=== PATIENT | male | born 1980 ===

== ENCOUNTER 2016-07-31 02:26 | Inpatient (IN) | payer MEDICAID ==
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
[2016-07-31 05:51] LABS: BASO % 0.6 % (0.0-2.0); EOS % 0.6 % (0.0-4.0); HEMATOCRIT 51.2 % (35.0-51.0); LYMPH # 0.9 K/uL (1.0-4.3); LYMPH % 11.7 % (20.0-40.0); MEAN CELL VOLUME 93.1 fl (80.0-94.0); MEAN CORPUSCULAR HEMOGLOBIN 31.3 pg (27.0-31.0); MEAN CORPUSCULAR HGB CONC 33.6 g/dL (33.0-37.0); MEAN PLATELET VOLUME 8.9 fl (7.2-11.7); MONO # 0.7 K/uL (0.0-0.8); NEUT # 6.2 K/uL (1.8-7.0); NEUT % 78.1 % (50.0-75.0); NRBC % 0.1 % (0.0-0.0); RED CELL DISTRIBUTION WIDTH 14.1 % (11.5-14.5); WHITE BLOOD COUNT 7.9 K/uL (4.8-10.8)
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
[2016-07-31] MEDS ORDERED: Multivitamin (MVI) 10 ML, Thiamine 100 MG, Folic Acid 1 MG in Sodium Chloride 0.9% 1,00... IV ONE (06:02)
[2016-07-31 06:08] LABS: ALB/GLOB RATIO 1.4 (1.0-2.1); ALKALINE PHOSPHATASE 52 U/L (38-126); ALT/SGPT 58 U/L (21-72); AST/SGOT 51 U/L (17-59); BILIRUBIN,TOTAL 1.6 mg/dl (0.2-1.3); BLOOD UREA NITROGEN 7 mg/dl (9-20); CALCIUM 9.6 mg/dL (8.4-10.2); CARBON DIOXIDE 19 mmol/L (22-30); CHLORIDE 108 mmol/L (98-107); GFR AFRICAN-AMERICAN > 60; GLUCOSE,RANDOM 101 mg/dL (75-110); POTASSIUM 4.7 MMOL/L (3.6-5.0); SODIUM 144 mmol/l (132-148); TOTAL PROTEIN 8.2 G/DL (6.3-8.2)
[2016-07-31 07:01] LABS: PARTIAL THROMBOPLASTIN TIME 26.8 SECONDS (23.3-32.5)
[2016-07-31] MEDS ORDERED: Pneumococcal 23-Valent Vaccine IM ONE (07:49)
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
--- NOTE | 2016-07-31 08:12 | RAD ---
HISTORY: medical exam COMPARISON: No prior. FINDINGS: LUNGS: No focal infiltrate. PLEURA: No significant pleural effusion identified, no pneumothorax apparent. CARDIOVASCULAR: Heart is top normal in size. This however may be related to projection. OSSEOUS STRUCTURES: No significant abnormalities. VISUALIZED UPPER ABDOMEN: Normal. OTHER FINDINGS: None. IMPRESSION: No active disease.
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
--- NOTE | 2016-07-31 09:29 | CARD ---
APPROVED REPORT EKG Measurement Heart [id number] CO [id number] <Conclusion> Normal sinus rhythm with sinus arrhythmia Normal ECG
--- NOTE | 2016-07-31 09:37 | CP.PCM.PN ---
Subjective - Date & Time of Evaluation Date of Evaluation: 07/31/16 Time of Evaluation: 09:36 - Subjective Subjective: newCTreviewed Contusion in left temperal lobe little bigger suggest obs in ICU today and repeat CT in AM Objective - Vital Signs/Intake and Output Vital Signs (last 24 hours): Temp Pulse Resp BP Pulse Ox 98.6 F 67 16 114/71 99 07/31/16 07:00 07/31/16 08:00 07/31/16 08:00 07/31/16 08:00 07/31/16 08:00 Intake and Output: 07/31/16 07/31/16 06:59 18:59 Intake Total 0 Output Total 400 Balance -400 - Medications Medications: Current Medications Multivitamins/Vitamin C 10 ml/Thiamine HCl 100 mg/ Folic Acid 1 mg/ Sodium Chloride 1,011.2 mls @ 75 mls/hr IV .[id number] ONE Stop: 07/31/16 19:30 Last Admin: 07/31/16 09:23 Dose: 75 mls/hr Ondansetron HCl (Zofran Inj) 4 mg IVP Q6H PRN PRN Reason: Nausea/Vomiting - Labs Labs: 07/31/16 05:46 07/31/16 05:46 PT 10.5 SECONDS (9.6-11.2) 07/31/16 06:05 INR 1.01 (0.92-1.08) 07/31/16 06:05 APTT 26.8 SECONDS (23.3-32.5) 07/31/16 06:05
--- NOTE | 2016-07-31 09:54 | CT ---
PROCEDURE: CT HEAD WITHOUT CONTRAST. HISTORY: f/u SDH COMPARISON: Earlier same day at 3:43 TECHNIQUE: Axial computed tomography images were obtained through the head/brain without intravenous contrast. Radiation dose: Total exam DLP = 842 mGy-cm. This CT exam was performed using one or more of the following dose reduction techniques: Automated exposure control, adjustment of the mA and/or kV according to patient size, and/or use of iterative reconstruction technique. FINDINGS: HEMORRHAGE: There is once again evidence of multiple areas of parenchymal and subdural hemorrhage. There is interval increase and left temporal lobe parenchymal hematoma seen best on series 4, images 14 through 20. Area now measures 2.3 centimeters by 1.6 centimeters. There is a small amount of additional subtle adjacent subdural blood and also some smaller areas of posterior left temporal hemorrhagic contusion seen on series 4, image 13 through 17. There is a minimal amount of additional subdural blood seen on image 27 in the left frontotemporal region. There is a small subtle area of parenchymal hemorrhagic contusion seen posteriorly in the right parietal convexity on axial image 44 and 45. Minimal probable stable thin subdural hematoma is seen overlying the right temporal lobe region on axial image 12-14. Minimal out of asymmetric increased density seen along the left tentorium which may suggest some additional subdural blood. This is unchanged. BRAIN: Mild localized mass effect is caused by the left temporal lobe hematoma. No significant midline shift is noted. No new infarct is noted. VENTRICLES: No intraventricular hemorrhage. Ventricles are stable in size. CALVARIUM: On bone windows I could not entirely exclude a small nondisplaced fracture of the right temporal bone region although this may reflect anatomic variation and/or suture. This extends into the inferior right temporal bone region. No displaced fractures are noted. No definite epidural hematomas are seen. PARANASAL SINUSES: Mild mucosal changes are seen in the sinuses. MASTOID AIR CELLS: Unremarkable as visualized. No inflammatory changes. OTHER FINDINGS: None. IMPRESSION: Multiple areas of parenchymal hemorrhage and subdural blood are noted as described above. This is increased in the left temporal lobe region with some mild localized mass effect now identified. Please see above for details. No hydrocephalus. Dr. Bass was notified of the findings at the time of this dictation.
[2016-07-31 11:32] LABS: RBC URINE 1 /hpf (0-3); URINE BILIRUBIN NEGATIVE (NEGATIVE); URINE BLOOD NEGATIVE (NEGATIVE); URINE COLOR STRAW (YELLOW); URINE GLUCOSE (UA) NEG (Normal); URINE KETONE NEGATIVE (NEGATIVE); URINE LEUKOCYTE ESTERASE NEG Leu/uL (Negative); URINE PROTEIN NEGATIVE (NEGATIVE); URINE UROBILINOGEN 0.2-1.0 mg/dL (0.2-1.0); WBC URINE < 1 /hpf (0-5)
[2016-08-01 05:16] LABS: BASO % 0.6 % (0.0-2.0); EOS # 0.1 K/uL (0.0-0.7); EOS % 1.7 % (0.0-4.0); HEMATOCRIT 49.8 % (35.0-51.0); LYMPH % 13.8 % (20.0-40.0); MEAN CELL VOLUME 92.5 fl (80.0-94.0); MEAN CORPUSCULAR HGB CONC 34.6 g/dL (33.0-37.0); MEAN PLATELET VOLUME 9.3 fl (7.2-11.7); MONO % 13.1 % (0.0-10.0); NEUT # 5.2 K/uL (1.8-7.0); NEUT % 70.8 % (50.0-75.0); NRBC % 0.2 % (0.0-0.0); RED CELL DISTRIBUTION WIDTH 13.8 % (11.5-14.5); WHITE BLOOD COUNT 7.3 K/uL (4.8-10.8)
[2016-08-01 05:26] LABS: ALCOHOL SERUM < 10 mg/dl (0-10); BLOOD UREA NITROGEN 14 mg/dl (9-20); CALCIUM 9.6 mg/dL (8.4-10.2); CARBON DIOXIDE 24 mmol/L (22-30); CHLORIDE 104 mmol/L (98-107); GFR AFRICAN-AMERICAN > 60; GLUCOSE,RANDOM 97 mg/dL (75-110); POTASSIUM 4.2 MMOL/L (3.6-5.0); SODIUM 138 mmol/l (132-148)
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
--- NOTE | 2016-08-01 10:07 | CT ---
PROCEDURE: CT HEAD WITHOUT CONTRAST. HISTORY: SDH COMPARISON: Yesterday TECHNIQUE: Axial computed tomography images were obtained through the head/brain without intravenous contrast. Radiation dose: Total exam DLP = 845 mGy-cm. This CT exam was performed using one or more of the following dose reduction techniques: Automated exposure control, adjustment of the mA and/or kV according to patient size, and/or use of iterative reconstruction technique. FINDINGS: HEMORRHAGE: There is once again evidence of multiple parenchymal hemorrhages in the left temporal lobe region. Larger anterior area of focal parenchymal hemorrhage and hemorrhagic contusion is grossly unchanged in size given for differences in slice selection. There is however some mild interval increase in posterior left temporal hemorrhagic contusion just anterior to the left mastoid air cell region on axial image 14 and 15 series 4. Largest area measures 10 millimeters x 11 millimeters previously 8 millimeters x 7 millimeters. No appreciable adjacent fractures are identified this region. There appears to be no interval change in right lateral temporal lobe subdural collection when compared to the prior study. No other new subdural collections are identified. There is stable appearance of a tiny right posterior frontal parenchymal hemorrhage on axial image 46. Parafalcine region and tentorial regions are grossly unchanged. No new cortical effacement is noted. No hydrocephalus or midline shift is noted. BRAIN: See above No atrophy or chronic microvascular ischemic changes. VENTRICLES: Unremarkable. No hydrocephalus. CALVARIUM: Unremarkable. PARANASAL SINUSES: Unchanged MASTOID AIR CELLS: Unremarkable as visualized. No inflammatory changes. OTHER FINDINGS: None. IMPRESSION: Mild interval increase left posterior temporal lobe hemorrhagic contusion. Larger area seen anteriorly on the prior study is grossly unchanged. This was placed into a critical result bin.
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
--- NOTE | 2016-08-01 11:46 | CP.PCM.PN ---
Subjective - Date & Time of Evaluation Date of Evaluation: 08/01/16 Time of Evaluation: 11:46 - Subjective Subjective: slight increase in size of contusion no interval change in condition no surgical intervention indicated repeat ct in AM keep in ICU Objective - Vital Signs/Intake and Output Vital Signs (last 24 hours): Temp Pulse Resp BP Pulse Ox 97.7 F 60 17 124/78 99 08/01/16 08:00 08/01/16 08:00 08/01/16 08:00 08/01/16 08:00 08/01/16 08:00 Intake and Output: 08/01/16 08/01/16 06:59 18:59 Intake Total 100 Output Total 200 Balance -100 - Medications Medications: Current Medications Acetaminophen (Tylenol 325mg Tab) 650 mg PO Q6 PRN PRN Reason: Headache Last Admin: 07/31/16 16:33 Dose: 650 mg Folic Acid (Folic Acid) 1 mg PO DAILY NATALIYA Loratadine (Claritin) 10 mg PO DAILY NATALIYA Last Admin: 08/01/16 08:49 Dose: 10 mg Multivitamins/Vitamin C (Multi-Delyn Liquid) 5 ml PO DAILY [facility] Ondansetron HCl (Zofran Inj) 4 mg IVP Q6H PRN PRN Reason: Nausea/Vomiting Thiamine HCl (Vitamin B1 Tab) 100 mg PO DAILY NATALIYA - Labs Labs: 08/01/16 04:30 08/01/16 04:30 PT 10.5 SECONDS (9.6-11.2) 07/31/16 06:05 INR 1.01 (0.92-1.08) 07/31/16 06:05 APTT 26.8 SECONDS (23.3-32.5) 07/31/16 06:05
[2016-08-01] MEDS: Multiple Vitamins Oral Solution PO SCH (13:10)
[2016-08-02 05:04] LABS: BLOOD UREA NITROGEN 9 mg/dl (9-20); CALCIUM 9.8 mg/dL (8.4-10.2); CARBON DIOXIDE 27 mmol/L (22-30); CHLORIDE 103 mmol/L (98-107); GFR AFRICAN-AMERICAN > 60; GLUCOSE,RANDOM 104 mg/dL (75-110); POTASSIUM 4.5 MMOL/L (3.6-5.0); SODIUM 137 mmol/l (132-148)
[2016-08-02 05:09] LABS: HEMATOCRIT 50.1 % (35.0-51.0); MEAN CELL VOLUME 91.9 fl (80.0-94.0); MEAN CORPUSCULAR HEMOGLOBIN 31.7 pg (27.0-31.0); MEAN CORPUSCULAR HGB CONC 34.4 g/dL (33.0-37.0); RED CELL DISTRIBUTION WIDTH 13.4 % (11.5-14.5); WHITE BLOOD COUNT 5.6 K/uL (4.8-10.8)
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
[2016-08-02 08:27] VITALS: PULSE 63
[2016-08-02] MEDS: Multiple Vitamins Oral Solution PO SCH (09:37)
--- NOTE | 2016-08-02 09:52 | CT ---
PROCEDURE: CT HEAD WITHOUT CONTRAST. HISTORY: [facility] COMPARISON: Comparison made with prior CT scan of the brain dated 08/01/2016. TECHNIQUE: Axial computed tomography images were obtained through the head/brain without intravenous contrast. Radiation dose: Total exam DLP = 838.90 mGy-cm. This CT exam was performed using one or more of the following dose reduction techniques: Automated exposure control, adjustment of the mA and/or kV according to patient size, and/or use of iterative reconstruction technique. FINDINGS: HEMORRHAGE: Current study re- demonstrates hemorrhagic contusional changes in the inferior and mid aspect of the left temporal lobe. Now visible is a low-attenuation rim of edema and or necrotic brain tissue which surrounds the hemorrhagic components. There also appears to be some very small amount of hemorrhagic contusion and or cortical surface/subarachnoid hemorrhage left inferior frontal operculuar region. No new hemorrhages. BRAIN: No mass effect or edema. No atrophy or chronic microvascular ischemic changes. VENTRICLES: No evidence of obstructive type hydrocephalus CALVARIUM: Unremarkable. PARANASAL SINUSES: Unremarkable as visualized. No significant inflammatory changes. MASTOID AIR CELLS: Unremarkable as visualized. No inflammatory changes. OTHER FINDINGS: None. IMPRESSION: Current study re- demonstrates hemorrhagic contusional changes in the inferior and mid aspect of the left temporal lobe. Now visible is a low-attenuation rim of edema and or necrotic brain tissue which surrounds the hemorrhagic components. There also appears to be some very small amount of hemorrhagic contusion and or cortical surface/subarachnoid hemorrhage left inferior frontal operculuar region. No new hemorrhages.
--- NOTE | 2016-08-02 10:35 | CP.PCM.PN ---
Subjective - Date & Time of Evaluation Date of Evaluation: 08/02/16 Time of Evaluation: 10:33 - Subjective Subjective: reviwed CT unchanged stable neurologically no indication for surgery clear for d/c Objective - Vital Signs/Intake and Output Vital Signs (last 24 hours): Temp Pulse Resp BP Pulse Ox 98.1 F 63 12 124/84 97 08/02/16 08:00 08/02/16 08:00 08/02/16 08:00 08/02/16 08:00 08/02/16 08:00 - Medications Medications: Current Medications Acetaminophen (Tylenol 325mg Tab) 650 mg PO Q6 PRN PRN Reason: Headache Last Admin: 08/01/16 20:08 Dose: 650 mg Folic Acid (Folic Acid) 1 mg PO DAILY [facility] Last Admin: 08/02/16 09:36 Dose: 1 mg Loratadine (Claritin) 10 mg PO DAILY [facility] Last Admin: 08/02/16 09:36 Dose: 10 mg Multivitamins/Vitamin C (Multi-Delyn Liquid) 5 ml PO DAILY [facility] Last Admin: 08/02/16 09:37 Dose: 5 ml Ondansetron HCl (Zofran Inj) 4 mg IVP Q6H PRN PRN Reason: Nausea/Vomiting Thiamine HCl (Vitamin B1 Tab) 100 mg PO DAILY [facility] Last Admin: 08/02/16 09:36 Dose: 100 mg - Labs Labs: 08/02/16 04:20 08/02/16 04:20 PT 10.5 SECONDS (9.6-11.2) 07/31/16 06:05 INR 1.01 (0.92-1.08) 07/31/16 06:05 APTT 26.8 SECONDS (23.3-32.5) 07/31/16 06:05
--- NOTE | 2016-08-02 10:48 | CP.CCUPN ---
CCU Subjective - Physician Review Subjective (Free Text): 08/02/16 10:48 Patient seen and examined, Awake and oriented x3, Comfortable, NAD Denies any new focal weakness or deficits. Afebrile Repeat Head CT scan reviewed with the neurosurgeon and patient was cleared for discharge CCU Objective - Vital Signs / Intake & Output Vital Signs (Last 4 hours): Vital Signs Temp Pulse Resp BP Pulse Ox 08/02/16 08:00 98.1 F 63 12 124/84 97 Intake and Output (Last 8hrs): Intake & Output 08/01/16 08/02/16 08/02/16 22:59 06:59 14:59 Output Total 300 Balance -300 Output: Urine 300 Urine, Voided 300 - Physical Exam Head: Positive for: Atraumatic, Normocephalic Pupils: Positive for: PERRL. Negative for: Sluggish, Non-Reactive Extroacular Muscles: Positive for: EOMI Conjunctiva: Positive for: Normal Ears: Positive for: Normal Mouth: Positive for: Moist Mucous Membranes Neck: Positive for: Normal Range of Motion, Trachea Midline. Negative for: Meningeal Signs, MIDLINE TENDERNESS, Paraspinal Tenderness, JVD, Lymphadenopathy , Bruit, Other Respiratory/Chest: Positive for: Clear to Auscultation, Good Air Exchange. Negative for: Respiratory Distress, Accessory Muscle Use Cardiovascular: Positive for: Regular Rate and Rhythm, Normal S1, S2, Peripheal Pulses Present. Negative for: Murmurs, Irregular Rhythm Abdomen: Positive for: Normal Bowel Sounds. Negative for: Tenderness, Distention, Peritoneal Signs Upper Extremity: Positive for: Normal Inspection. Negative for: Cyanosis, Edema Lower Extremity: Positive for: Normal Inspection. Negative for: Edema, CALF TENDERNESS Neurological: Positive for: GCS=15, CN II-XII Intact, Speech Normal, Motor Func Grossly Intact, Normal Sensory Function Psychiatric: Positive for: Alert, Oriented x 3, Normal Insight, Normal Concentration, Normal Affect, Normal Mood - Medications Active Medications: Active Medications Generic Name Dose Route Start Last Admin Trade Name Freq PRN Reason Stop Dose Admin Acetaminophen 650 mg 07/31/16 16:24 08/01/16 20:08 Tylenol 325mg Tab PO 650 mg Q6 PRN Administration Headache Folic Acid 1 mg 08/01/16 11:15 08/02/16 09:36 Folic Acid PO 1 mg DAILY [facility] Administration Loratadine 10 mg 07/31/16 14:15 08/02/16 09:36 Claritin PO 10 mg DAILY [facility] Administration Multivitamins/Vitamin C 5 ml 08/01/16 11:15 08/02/16 09:37 Multi-Delyn Liquid PO 5 ml DAILY [facility] Administration Ondansetron HCl 4 mg 07/31/16 05:42 Zofran Inj IVP Q6H PRN Nausea/Vomiting Thiamine HCl 100 mg 08/01/16 11:15 08/02/16 09:36 Vitamin B1 Tab PO 100 mg DAILY [facility]AL[facility] Administration - Patient Studies Lab Studies: Microbiology Studies 07/31/16 14:00 MRSA Culture (Admit) - Final Naris MRSA NOT DETECTED Lab Studies 08/02/16 08/02/16 Range/Units 04:20 04:20 WBC 5.6 (4.8-10.8) K/uL RBC 5.46 (4.40-5.90) Mil/uL Hgb 17.3 (12.0-18.0) g/dL Hct 50.1 (35.0-51.0) % MCV 91.9 (80.0-94.0) fl MCH 31.7 H (27.0-31.0) pg MCHC 34.4 (33.0-37.0) g/dL RDW 13.4 (11.5-14.5) % Plt Count 152 (130-400) K/uL Sodium 137 (132-148) mmol/l Potassium 4.5 (3.6-5.0) MMOL/L Chloride 103 (98-107) mmol/L Carbon Dioxide 27 (22-30) mmol/L Anion Gap 12 (10-20) BUN 9 (9-20) mg/dl Creatinine 0.7 L (0.8-1.5) mg/dL Est GFR ( Amer) > 60 Est GFR (Non-Af Amer) > 60 Random Glucose 104 (75-110) mg/dL Calcium 9.8 (8.4-10.2) mg/dL Laboratory Results - last 24 hr 08/02/16 08/02/16 04:20 04:20 WBC 5.6 RBC 5.46 Hgb 17.3 Hct 50.1 MCV 91.9 MCH 31.7 H MCHC 34.4 RDW 13.4 Plt Count 152 Sodium 137 Potassium 4.5 Chloride 103 Carbon Dioxide 27 Anion Gap 12 BUN 9 Creatinine 0.7 L Est GFR ( Amer) > 60 Est GFR (Non-Af Amer) > 60 Random Glucose 104 Calcium 9.8 Fingerstick Blood Sugar Results: 107 Review of Systems - Cardiovascular Cardiovascular: absent: As Per HPI, Acrocyanosis, Chest Pain, Chest Pain at Rest , Chest Pain with Activity, Claudication, Diaphoresis, Dyspnea, Dyspnea on Exertion, Edema, Irregular Heart Rhythm, Pain Radiating to Arm/Neck/Jaw, Leg Edema, Leg Ulcers, Lightheadedness, Orthopnea, Palpitations, Paroxysmal Nocturnal Dyspnea, Pedal Edema, Radiating Pain, Rapid Heart Rate, Slow Heart Rate, Syncope, Other, UNREMARKABLE - Respiratory Respiratory: absent: As Per HPI, Cough, Dyspnea, Hemoptysis, Dyspnea on Exertion , Wheezing, Snoring, Stridor, Pain on Inspiration, Chest Congestion, Excessive Mucous Production, Change in Mucous Color, Pain with Coughing, Other, UNREMARKABLE Critical Care Progress Note - Extremities/Vascular Does the Patient have a Central Venous Catheter?: No Does the Patient need a Central Venous Catheter?: No Does the Patient have a Cole Catheter?: No Does the Patient need a Cole Catheter?: No - Nutrition Nutrition: Nutrition Category Date Time Status Regular Diet [DIET] Diets 07/31/16 Breakfast Active Assessment/Plan (1) Subdural bleeding Current Visit: Yes Status: Acute Priority: Medium Comment: Stable neurologic status, no new neuro defecits (2) Alcohol intoxication Current Visit: Yes Status: Acute Priority: Medium Comment: Thiamine, Folate. (3) DVT prophylaxis Current Visit: Yes Status: Acute Priority: Medium Comment: SCDs
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
[2016-08-02 12:16] VITALS: BP 112/76; RESP 11; TEMP 97.8; O2SAT 96
== END 2016-08-02 12:30 | disposition home or self-care (01) | DRG 87 ==
LOC: H.ER 02:26 → H.ERHOLD 05:43 → H.ICU/CCU 06:53
PROVIDERS: ADMIT Internal Medicine; ATTEND Internal Medicine
DX: S06.5X0A Traumatic subdural hemorrhage without loss of consciousness, initial encounter (principal); F10.129 Alcohol abuse with intoxication, unspecified; Y90.7 Blood alcohol level of 200-239 mg/100 ml; F17.210 Nicotine dependence, cigarettes, uncomplicated; V13.4XXA Pedal cycle driver injured in collision with car, pick-up truck or van in traffic accident, initial encounter; Y93.55 Activity, bike riding; Y92.414 Local residential or business street as the place of occurrence of the external cause